=== PATIENT | female | born 1960 | race Hispanic/Latino ===

== ENCOUNTER → 2019-02-09 | Outpatient (CLI) | payer MEDICAID | END | disposition home or self-care (01) | LOC: SHCH 09:24 | PROVIDERS: ATTEND Internal Medicine Cardiovascular Disease | DX: I11.9 Hypertensive heart disease without heart failure (principal); I08.0 Rheumatic disorders of both mitral and aortic valves | CPT/HCPCS: 93306 ==

== ENCOUNTER → 2020-04-25 | Outpatient (CLI) | payer MEDICAID | END | disposition home or self-care (01) | LOC: SHCH 11:17 | PROVIDERS: ATTEND Internal Medicine Cardiovascular Disease | DX: I35.0 Nonrheumatic aortic (valve) stenosis (principal) | CPT/HCPCS: 93306; 93356 ==

== ENCOUNTER 2020-06-15 22:52 | Inpatient (IN) | payer MEDICAID ==
[~2020-06-15] VITALS: Ht 154.9 cm; Wt 143.2 kg
[2020-06-15 23:12] LABS: BASOPHILS % (AUTO) 0.4 % (0.0-5.0); EOSINOPHILS % (AUTO) 0.6 % (0.0-8.0); HEMATOCRIT 38.6 % (36-48); LYMPHOCYTES % (AUTO) 18.1 % (21.0-51.0); MEAN CORPUSCULAR HEMOGLOBIN 24.8 pg (27.0-33.0); MEAN CORPUSCULAR HGB CONC 30.3 g/dL (32.0-36.0); MONOCYTES % (AUTO) 9.3 % (3.0-13.0); NEUTROPHILS % (AUTO) 71.3 % (40.0-77.0); PLATELET COUNT (AUTO) 257 K/uL (130-400); RED BLOOD CELL COUNT(AUTO) 4.71 MIL/uL (4.00-5.50); RED CELL DISTRIBUTION WIDTH 17.7 % (11.0-15.5); WHITE BLOOD COUNT (AUTO) 7.1 K/uL (4.8-10.8)
[2020-06-15 23:23] LABS: CREATININE 0.8 mg/dL (0.5-1.5); POTASSIUM 3.7 mmol/L (3.5-5.1)
[2020-06-15 23:24] LABS: INR 1.6 (0.85-1.15); PROTHROMBIN TIME 16.7 SEC (9.6-11.6)
[2020-06-15 23:25] LABS: PARTIAL THROMBOPLASTIN TIME 44.6 SEC (26.3-35.5)
[2020-06-15 23:32] LABS: ALBUMIN 3.1 g/dL (3.5-5.0); BILIRUBIN,TOTAL 0.3 mg/dL (0.2-1.0)
[2020-06-16 00:10] LABS: APPEARANCE,URINE Clear (CLEAR); BILIRUBIN,URINE Negative (NEGATIVE); COLOR,URINE Yellow (YELLOW); GLUCOSE, URINE (UA) Negative (NEGATIVE); KETONES,URINE Negative (NEGATIVE); LEUKOCYTE ESTERASE ,URINE Trace (NEGATIVE); NITRATE,URINE Negative (NEGATIVE); OCCULT BLOOD,URINE Trace (NEGATIVE); PH,URINE 5.5 (5.0-8.0); PROTEIN,URINE Negative (NEGATIVE); UROBILINOGEN,URINE 0.2 mg/dL (0.2-1.0)
[2020-06-16] MEDS ORDERED: NITROGLYCERIN 1GM/1 INCH PACKET TD ONE (00:12)
[2020-06-16] MEDS ORDERED: FUROSEMIDE 10 MG/ML 4ML VIAL ONE (00:12)
[2020-06-16 00:19] LABS: BACTERIA,URINE Moderate /HPF (None Seen); RBC,URINE None Seen /HPF (0-1); SQUAMOUS EPITHELIAL CELL,UR Rare /HPF (0-2); WBC,URINE 0-1 /HPF (0-1)
[2020-06-16] MEDS ORDERED: ACETAMINOPHEN 325 MG TAB PO PRN ×2 (01:00)
[2020-06-16] MEDS ORDERED: GUAIFENESIN-DM 200/20 MG 10 ML PO PRN (01:00)
[2020-06-16] MEDS ORDERED: NITROGLYCERIN 0.4 MG SL TAB SL PRN (01:00)
[2020-06-16] MEDS ORDERED: ONDANSETRON HCL 4 MG/2 ML VIAL IV PRN (01:00)
[2020-06-16] MEDS ORDERED: LACTULOSE 20 GM/30 ML UDCUP PO PRN (01:00)
[2020-06-16] MEDS ORDERED: MAG HYDROX/AL HYDROX/SIMETH ES 30 ML SUSP UDCUP PO PRN (01:00)
[2020-06-16] MEDS ORDERED: FUROSEMIDE 10 MG/ML 2ML VIAL IV SCH (01:00)
[2020-06-16] MEDS ORDERED: DiphenhydrAMINE HCL 50 MG/ML VIAL IV PRN (01:00)
[2020-06-16] MEDS ORDERED: DIPHENHYDRAMINE HCL 25 MG CAPSULE PO PRN (01:00)
[2020-06-16] MEDS: FAMOTIDINE/PF 20 MG/2 ML VIAL IV SCH ×2 (09:00→21:00)
[2020-06-16] MEDS ORDERED: DRONEDARONE HYDROCHLORIDE 400 MG TABLET PO SCH (09:00)
[2020-06-16] MEDS ORDERED: RIVAROXABAN 20 MG TABLET PO SCH (09:00)
[2020-06-16] MEDS ORDERED: METOPROLOL TARTRATE 50 MG TAB PO SCH (09:00)
[2020-06-16] MEDS ORDERED: ASPIRIN 325 MG TABLET PO SCH (09:00)
[2020-06-16] MEDS ORDERED: ASPIRIN 325 MG TABLET ONE (09:18)
[2020-06-16] MEDS ORDERED: METOPROLOL TARTRATE 50 MG TAB ONE ×2 (09:19→21:26)
[2020-06-16] MEDS ORDERED: FAMOTIDINE/PF 20 MG/2 ML VIAL IV ONE (09:19)
[2020-06-16 11:25] LABS: THYROID STIMULATING HORMONE 1.33 uIU/mL (0.36-3.74)
[2020-06-16] MEDS ORDERED: FUROSEMIDE 20 MG TABLET ONE (12:41)
[2020-06-16] MEDS ORDERED: ACETAMINOPHEN 325 MG TAB ONE (21:26)
[2020-06-16] MEDS ORDERED: METOPROLOL TARTRATE 25 MG TAB ONE (21:27)
[2020-06-16] MEDS ORDERED: DIPHENHYDRAMINE HCL 25 MG CAPSULE ONE (21:31)
[2020-06-17 07:43] LABS: BASOPHILS % (AUTO) 0.4 % (0.0-5.0); EOSINOPHILS % (AUTO) 1.2 % (0.0-8.0); HEMATOCRIT 38.2 % (36-48); LYMPHOCYTES % (AUTO) 19.6 % (21.0-51.0); MEAN CORPUSCULAR HEMOGLOBIN 24.8 pg (27.0-33.0); MEAN CORPUSCULAR HGB CONC 29.8 g/dL (32.0-36.0); MEAN CORPUSCULAR VOLUME 83.2 fL (79-99); MONOCYTES % (AUTO) 11.1 % (3.0-13.0); NEUTROPHILS % (AUTO) 67.3 % (40.0-77.0); PLATELET COUNT (AUTO) 228 K/uL (130-400); RED BLOOD CELL COUNT(AUTO) 4.59 MIL/uL (4.00-5.50); RED CELL DISTRIBUTION WIDTH 17.7 % (11.0-15.5); WHITE BLOOD COUNT (AUTO) 5.2 K/uL (4.8-10.8)
[2020-06-17 07:57] LABS: ALBUMIN 2.9 g/dL (3.5-5.0); BILIRUBIN,TOTAL 0.6 mg/dL (0.2-1.0); CREATININE 0.7 mg/dL (0.5-1.5); TOTAL PROTEIN, SERUM 6.9 g/dL (6.0-8.3)
[2020-06-17 08:08] LABS: B-TYPE NATRIURETIC PEPTIDE 563 pg/mL (0-100)
[2020-06-17] MEDS: FAMOTIDINE/PF 20 MG/2 ML VIAL IV SCH ×2 (09:00→20:10)
[2020-06-17] MEDS ORDERED: METOPROLOL TARTRATE 50 MG TAB ONE (09:55)
[2020-06-17] MEDS ORDERED: METOPROLOL TARTRATE 25 MG TAB ONE (09:55)
[2020-06-17] MEDS ORDERED: FAMOTIDINE/PF 20 MG/2 ML VIAL IV ONE (09:56)
[2020-06-17 11:26] VITALS: BP 165/99
[2020-06-17] MEDS ORDERED: FURO20TA4 PO (11:57)
[2020-06-17] MEDS ORDERED: RIVA20TA PO (11:57)
[2020-06-17] MEDS ORDERED: METO25 PO (11:57)
[2020-06-17] MEDS ORDERED: DRON400T2 PO (11:57)
[2020-06-17] MEDS ORDERED: METO75TA PO (13:48)
[2020-06-17 16:08] VITALS: BP 150/77
[2020-06-17] MEDS ORDERED: IOHEXOL 350 MG/ML 100ML INFUS..BTL IV ONE (16:26)
[2020-06-17 19:47] VITALS: BP 176/98
[2020-06-17] MEDS: METOPROLOL TARTRATE 50 MG TAB PO SCH (20:09)
[2020-06-17] MEDS: FUROSEMIDE 20 MG TABLET PO SCH (20:09)
[2020-06-17] MEDS ORDERED: METOPROLOL TARTRATE 50 MG TAB PO SCH (21:00)
[2020-06-17] MEDS ORDERED: RIVAROXABAN 20 MG TABLET PO SCH (21:00)
[2020-06-17 23:57] VITALS: BP 135/75
[2020-06-18 04:13] VITALS: BP 128/86
[2020-06-18 04:50] LABS: BASOPHILS % (AUTO) 0.6 % (0.0-5.0); EOSINOPHILS % (AUTO) 1.4 % (0.0-8.0); HEMATOCRIT 35.7 % (36-48); LYMPHOCYTES % (AUTO) 23.1 % (21.0-51.0); MEAN CORPUSCULAR HEMOGLOBIN 24.6 pg (27.0-33.0); MEAN CORPUSCULAR HGB CONC 29.1 g/dL (32.0-36.0); MEAN CORPUSCULAR VOLUME 84.6 fL (79-99); MONOCYTES % (AUTO) 10.7 % (3.0-13.0); PLATELET COUNT (AUTO) 228 K/uL (130-400); RED BLOOD CELL COUNT(AUTO) 4.22 MIL/uL (4.00-5.50); RED CELL DISTRIBUTION WIDTH 17.3 % (11.0-15.5); WHITE BLOOD COUNT (AUTO) 4.8 K/uL (4.8-10.8)
[2020-06-18 05:07] LABS: ALBUMIN 2.7 g/dL (3.5-5.0); BILIRUBIN,TOTAL 0.6 mg/dL (0.2-1.0); CREATININE 0.6 mg/dL (0.5-1.5); POTASSIUM 3.4 mmol/L (3.5-5.1); TOTAL PROTEIN, SERUM 6.4 g/dL (6.0-8.3)
[2020-06-18] MEDS ORDERED: AMOXICILLIN/POTASSIUM CLAV 875-125 TABLET PO SCH ×2 (07:00→09:00)
[2020-06-18 07:21] VITALS: BP 172/95
[2020-06-18] MEDS ORDERED: METO75TA PO (08:20)
[2020-06-18] MEDS ORDERED: AMOX-429 PO (08:41)
[2020-06-18] MEDS: FUROSEMIDE 20 MG TABLET PO SCH (08:57)
[2020-06-18] MEDS: FAMOTIDINE/PF 20 MG/2 ML VIAL IV SCH (08:57)
[2020-06-18] MEDS: METOPROLOL TARTRATE 50 MG TAB PO SCH (08:57)
[2020-06-18 11:03] VITALS: BP 138/72
[2020-06-18] MEDS ORDERED: METO100T14 PO (11:46)
== END 2020-06-18 16:45 | disposition home or self-care (01) | DRG 194 ==
LOC: EDH 22:52 → EDHIP 22:53 → 4CH 06-17 05:18
PROVIDERS: ADMIT Family Medicine; ATTEND Family Medicine
DX: I11.0 Hypertensive heart disease with heart failure (principal); I48.19 Other persistent atrial fibrillation; E66.01 Morbid (severe) obesity due to excess calories; G47.33 Obstructive sleep apnea (adult) (pediatric); E78.5 Hyperlipidemia, unspecified; J18.9 Pneumonia, unspecified organism; I50.33 Acute on chronic diastolic (congestive) heart failure; E11.9 Type 2 diabetes mellitus without complications; R04.0 Epistaxis; Z20.822 Contact with and (suspected) exposure to COVID-19; D68.69 Other thrombophilia; Z68.43 Body mass index [BMI] 50.0-59.9, adult; Z79.01 Long term (current) use of anticoagulants; Z79.899 Other long term (current) drug therapy; Z98.84 Bariatric surgery status; Z91.19 Patient's noncompliance with other medical treatment and regimen
CPT/HCPCS: 36415; 70450; 71045; 71275; 80053; 80061; 81001; 82550; 83735; 83880; 84443; 84484; 85025; 85610; 85730; 87077; 87088; 87186; 87426; 93005; 94760; G0378; J1940; J3490; Q0163; Q9967; U0003

== ENCOUNTER 2020-11-13 17:04 | Observation (INO) | payer MEDICAID ==
[~2020-11-13] VITALS: Ht 154.9 cm; Wt 142.5 kg
[~2020-11-13 17:04] MED LIST: AMOX-429 PO; FURO20TA4 PO; METO100T14 PO; RIVA20TA PO
[2020-11-13 17:50] LABS: BASOPHILS % (AUTO) 0.2 % (0.0-5.0); EOSINOPHILS % (AUTO) 1.3 % (0.0-8.0); HEMATOCRIT 40.1 % (36-48); LYMPHOCYTES % (AUTO) 25.3 % (21.0-51.0); MEAN CORPUSCULAR HEMOGLOBIN 25.7 pg (27.0-33.0); MEAN CORPUSCULAR HGB CONC 29.9 g/dL (32.0-36.0); MEAN CORPUSCULAR VOLUME 85.9 fL (79-99); MONOCYTES % (AUTO) 11.4 % (3.0-13.0); NEUTROPHILS % (AUTO) 61.6 % (40.0-77.0); PLATELET COUNT (AUTO) 268 K/uL (130-400); RED BLOOD CELL COUNT(AUTO) 4.67 MIL/uL (4.00-5.50); RED CELL DISTRIBUTION WIDTH 16.6 % (11.0-15.5); WHITE BLOOD COUNT (AUTO) 5.5 K/uL (4.8-10.8)
[2020-11-13] MEDS ORDERED: ZOLPIDEM TARTRATE 5 MG TAB PO PRN (18:00)
[2020-11-13] MEDS ORDERED: SOTALOL HCL 80 MG TABLET PO SCH (18:00)
[2020-11-13] MEDS ORDERED: ACETAMINOPHEN 325 MG TAB PO PRN (18:00)
[2020-11-13 18:03] LABS: ALBUMIN 3.5 g/dL (3.5-5.0); BILIRUBIN,TOTAL 0.4 mg/dL (0.2-1.0); CREATININE 0.8 mg/dL (0.5-1.5); MAGNESIUM 2.6 mg/dL (1.80-2.40); TOTAL PROTEIN, SERUM 7.4 g/dL (6.0-8.3)
[2020-11-13 18:19] VITALS: BP 149/67
[2020-11-13] MEDS ORDERED: ACET325C6 PO (18:52)
[2020-11-13] MEDS ORDERED: TRAM50TA4 PO (18:52)
[2020-11-13] MEDS ORDERED: DRON400T7 PO (18:52)
[2020-11-13] MEDS ORDERED: METO50TA18 PO (18:52)
[2020-11-13] MEDS ORDERED: DEXTROSE 50%-WATER 50 ML DISP.SYRIN IV PRN (19:30)
[2020-11-13] MEDS ORDERED: KCL 20 MEQ ERTAB PO PRN (19:30)
[2020-11-13] MEDS ORDERED: POTASSIUM CHLORIDE 10MEQ/100ML 100 ML IV PRN (19:30)
[2020-11-13] MEDS ORDERED: POTASSIUM CHLORIDE 10% ELIXIR 20 MEQ/15 ML UDCUP PO PRN ×2 (19:30)
[2020-11-13] MEDS ORDERED: POTASSIUM CHLORIDE 20MEQ/100ML 100 ML IV PRN (19:30)
[2020-11-13] MEDS ORDERED: LIDOCAINE HCL-MPF 1% 2ML VIAL IV PRN ×2 (19:30)
[2020-11-13] MEDS ORDERED: GLUCAGON 1MG KIT 1 MG ML IM PRN (19:30)
[2020-11-13 19:50] VITALS: BP 164/83
[2020-11-13] MEDS: INSULIN HUMULIN R 100 UNIT/ML 3ML SQ SCH (21:00)
[2020-11-14] VITALS (9 sets, daily range): BP systolic 138–166; BP diastolic 66–105
[2020-11-14] MEDS ORDERED: METO50TA18 PO (02:45)
[2020-11-14] MEDS ORDERED: ACET-2247 PO (02:45)
[2020-11-14] MEDS ORDERED: TRAM50TA4 PO (02:45)
[2020-11-14] MEDS ORDERED: RIVA20TA PO (02:45)
[2020-11-14] MEDS ORDERED: FURO20TA4 PO (02:45)
[2020-11-14] MEDS ORDERED: DRON400T7 PO (02:51)
[2020-11-14] MEDS ORDERED: TRAMADOL HCL 50 MG TABLET PO PRN (03:30)
[2020-11-14] MEDS ORDERED: AMOX/CLAV 875/125MG TAB PO SCH ×2 (03:30→09:00)
[2020-11-14] MEDS ORDERED: ACETAMINOPHEN 325 MG TAB PO PRN (03:30)
[2020-11-14 04:53] LABS: BASOPHILS % (AUTO) 0.4 % (0.0-5.0); HEMATOCRIT 38.8 % (36-48); LYMPHOCYTES % (AUTO) 25.1 % (21.0-51.0); MEAN CORPUSCULAR HEMOGLOBIN 25.2 pg (27.0-33.0); MEAN CORPUSCULAR HGB CONC 29.6 g/dL (32.0-36.0); MEAN CORPUSCULAR VOLUME 84.9 fL (79-99); MONOCYTES % (AUTO) 12.3 % (3.0-13.0); PLATELET COUNT (AUTO) 243 K/uL (130-400); RED BLOOD CELL COUNT(AUTO) 4.57 MIL/uL (4.00-5.50); RED CELL DISTRIBUTION WIDTH 16.4 % (11.0-15.5); WHITE BLOOD COUNT (AUTO) 4.5 K/uL (4.8-10.8)
[2020-11-14 05:28] LABS: CREATININE 0.8 mg/dL (0.5-1.5); POTASSIUM 3.5 mmol/L (3.5-5.1); THYROID STIMULATING HORMONE 2.13 uIU/mL (0.36-3.74)
[2020-11-14] MEDS: INSULIN HUMULIN R 100 UNIT/ML 3ML SQ SCH ×4 (06:08→21:00)
[2020-11-14] MEDS: FAMOTIDINE 20MG TAB PO SCH ×2 (09:05→21:33)
[2020-11-14] MEDS: RIVAROXABAN 20 MG TABLET PO SCH (09:05)
[2020-11-14] MEDS: SOTALOL HCL 80 MG TABLET PO SCH ×2 (09:05→21:33)
[2020-11-14] MEDS: FUROSEMIDE 20 MG TABLET PO SCH ×2 (09:06→21:33)
[2020-11-14] MEDS: KCL 20 MEQ ERTAB PO PRN ×2 (10:52→12:32)
[2020-11-14] MEDS ORDERED: AMLODIPINE 5 MG TAB PO ONE (16:30)
[2020-11-15 04:00] VITALS: BP 123/59
[2020-11-15 06:07] LABS: BASOPHILS % (AUTO) 0.4 % (0.0-5.0); EOSINOPHILS % (AUTO) 1.9 % (0.0-8.0); HEMATOCRIT 39.6 % (36-48); LYMPHOCYTES % (AUTO) 24.1 % (21.0-51.0); MEAN CORPUSCULAR HEMOGLOBIN 25.1 pg (27.0-33.0); MEAN CORPUSCULAR HGB CONC 30.1 g/dL (32.0-36.0); MEAN CORPUSCULAR VOLUME 83.4 fL (79-99); MONOCYTES % (AUTO) 12.1 % (3.0-13.0); NEUTROPHILS % (AUTO) 61.3 % (40.0-77.0); PLATELET COUNT (AUTO) 260 K/uL (130-400); RED BLOOD CELL COUNT(AUTO) 4.75 MIL/uL (4.00-5.50); RED CELL DISTRIBUTION WIDTH 16.1 % (11.0-15.5); WHITE BLOOD COUNT (AUTO) 4.7 K/uL (4.8-10.8)
[2020-11-15] MEDS: INSULIN HUMULIN R 100 UNIT/ML 3ML SQ SCH ×2 (06:10→11:30)
[2020-11-15 06:25] LABS: CREATININE 0.7 mg/dL (0.5-1.5); MAGNESIUM 2.3 mg/dL (1.80-2.40); POTASSIUM 3.6 mmol/L (3.5-5.1)
[2020-11-15 08:00] VITALS: BP 162/73
[2020-11-15] MEDS: RIVAROXABAN 20 MG TABLET PO SCH (08:28)
[2020-11-15] MEDS: SOTALOL HCL 80 MG TABLET PO SCH (08:28)
[2020-11-15] MEDS: FUROSEMIDE 20 MG TABLET PO SCH (08:29)
[2020-11-15] MEDS: FAMOTIDINE 20MG TAB PO SCH (08:29)
[2020-11-15] MEDS: KCL 20 MEQ ERTAB PO PRN (08:34)
[2020-11-15] MEDS ORDERED: AMLODIPINE 5 MG TAB PO SCH (09:00)
[2020-11-15 12:40] VITALS: BP 146/82
[2020-11-15] MEDS ORDERED: SOTA80TA PO (14:10)
[2020-11-15] MEDS ORDERED: AMLO5TAB4 PO (15:43)
[2020-11-15 16:33] VITALS: BP 137/74
[2020-11-15] MEDS ORDERED: SOTALOL HCL 80 MG TABLET PO SCH (21:00)
== END 2020-11-15 17:15 | disposition home or self-care (01) ==
LOC: EDH 17:04 → EDHIP 17:05 → 4DH 11-14 03:25
PROVIDERS: ADMIT Hospitalist; ATTEND Hospitalist
DX: I48.0 Paroxysmal atrial fibrillation (principal); G47.33 Obstructive sleep apnea (adult) (pediatric); I42.2 Other hypertrophic cardiomyopathy; I11.0 Hypertensive heart disease with heart failure; I50.9 Heart failure, unspecified; J44.9 Chronic obstructive pulmonary disease, unspecified; E11.9 Type 2 diabetes mellitus without complications; E66.9 Obesity, unspecified; E78.5 Hyperlipidemia, unspecified; F02.80 Dementia in other diseases classified elsewhere, unspecified severity, without behavioral disturbance, psychotic disturbance, mood disturbance, and anxiety; G30.9 Alzheimer's disease, unspecified; Z96.653 Presence of artificial knee joint, bilateral; Z98.84 Bariatric surgery status; Z90.49 Acquired absence of other specified parts of digestive tract; Z79.01 Long term (current) use of anticoagulants; Z79.899 Other long term (current) drug therapy
CPT/HCPCS: 36415 ×3; 80048 ×2; 80053; 80061; 82948 ×8; 83735 ×2; 84443; 85025 ×3; 93005 ×4; 99284; G0378 ×37

== ENCOUNTER 2020-11-17 11:32 | Emergency (ER) | payer MEDICAID ==
[~2020-11-17] VITALS: Ht 154.9 cm; Wt 142.4 kg
[~2020-11-17 11:32] MED LIST changes: +ACET-2247 PO; +ACET325C6 PO; +AMLO5TAB4 PO; -METO100T14 PO; +SOTA80TA PO; +TRAM50TA4 PO
[2020-11-17 11:34] VITALS: BP 167/84
[2020-11-17] MEDS ORDERED: KETOROLAC 15MG/ML VIAL (15MG/ML) IM ONE (12:00)
[2020-11-17 12:18] LABS: BASOPHILS % (AUTO) 0.3 % (0.0-5.0); EOSINOPHILS % (AUTO) 1.3 % (0.0-8.0); HEMATOCRIT 44.4 % (36-48); LYMPHOCYTES % (AUTO) 18.9 % (21.0-51.0); MEAN CORPUSCULAR HEMOGLOBIN 25.7 pg (27.0-33.0); MEAN CORPUSCULAR HGB CONC 30.2 g/dL (32.0-36.0); MEAN CORPUSCULAR VOLUME 85.1 fL (79-99); MONOCYTES % (AUTO) 11.7 % (3.0-13.0); NEUTROPHILS % (AUTO) 67.6 % (40.0-77.0); PLATELET COUNT (AUTO) 270 K/uL (130-400); RED BLOOD CELL COUNT(AUTO) 5.22 MIL/uL (4.00-5.50); RED CELL DISTRIBUTION WIDTH 16.7 % (11.0-15.5); WHITE BLOOD COUNT (AUTO) 6.2 K/uL (4.8-10.8)
[2020-11-17 12:27] LABS: CREATININE 0.6 mg/dL (0.5-1.5); POTASSIUM 4.5 mmol/L (3.5-5.1)
[2020-11-17 12:32] LABS: ALBUMIN 3.6 g/dL (3.5-5.0); BILIRUBIN,TOTAL 0.4 mg/dL (0.2-1.0); TOTAL PROTEIN, SERUM 8.1 g/dL (6.0-8.3)
[2020-11-17] MEDS ORDERED: CEPH500B PO (12:53)
[2020-11-17] MEDS ORDERED: CEPHALEXIN 500 MG CAPSULE PO ONE (13:00)
[2020-11-17 13:37] VITALS: BP 157/86
== END 2020-11-17 13:48 | disposition home or self-care (01) ==
LOC: EDH 11:32
DX: I80.8 Phlebitis and thrombophlebitis of other sites (principal); M79.601 Pain in right arm; I11.0 Hypertensive heart disease with heart failure; I50.9 Heart failure, unspecified; I48.91 Unspecified atrial fibrillation; E78.00 Pure hypercholesterolemia, unspecified; Z98.890 Other specified postprocedural states; Z79.899 Other long term (current) drug therapy
CPT/HCPCS: 36415; 80053; 85025; 93971; 96372; 99284; J1885

== ENCOUNTER → 2022-09-18 | Outpatient (CLI) | payer MEDICAID ==
[~2022-09-18] MED LIST changes: +CEPH500B PO
== END | disposition home or self-care (01) ==
LOC: SHCH 08:52
PROVIDERS: ATTEND Internal Medicine Cardiovascular Disease
DX: I35.0 Nonrheumatic aortic (valve) stenosis (principal); R09.89 Other specified symptoms and signs involving the circulatory and respiratory systems
CPT/HCPCS: 93306; 93880

== ENCOUNTER → 2024-02-12 | Outpatient (CLI) | payer MEDICAID | END | disposition home or self-care (01) | LOC: SHCH 13:03 | PROVIDERS: ATTEND Student in an Organized Health Care Education/Training Program | DX: I48.0 Paroxysmal atrial fibrillation (principal) | CPT/HCPCS: 93306 ==